=== PATIENT | female | born 1995 | race Caucasian/White ===

== ENCOUNTER 2019-04-13 20:12 | Emergency (ER) | payer OTHER ==
[~2019-04-13] VITALS: Ht 162.6 cm; Wt 104.3 kg
[~2019-04-13 20:12] MED LIST: MOBIC7.5 MG PO
[2019-04-13] MEDS ORDERED: FLEXERIL PO (21:08)
[2019-04-13 21:14] VITALS: BP 138/62
== END 2019-04-13 21:15 | disposition home or self-care (01) ==
LOC: M.ERS 20:12
DX: M25.522 Pain in left elbow (principal); Z88.1 Allergy status to other antibiotic agents; V49.49XA Driver injured in collision with other motor vehicles in traffic accident, initial encounter; Y93.I9 Activity, other involving external motion; Y92.488 Other paved roadways as the place of occurrence of the external cause; Y99.8 Other external cause status